=== PATIENT | female | born 1970 | race African-American/Black ===

== ENCOUNTER 2020-10-20 21:04 | Inpatient (IN) | payer OTHER ==
[~2020-10-20] VITALS: Ht 175.3 cm; Wt 95.3 kg
--- NOTE | 2020-10-20 21:30 | NUR ---
ED Nurse Note: pt has hx of fibroids, blood transfusions due to heavy menstrual, and back injury, back pain x3 days, radiating to lower stomach, pt is aox4, ambulatory, vitals stable
--- NOTE | 2020-10-20 21:40 | NUR ---
Patient arrived to ER via ambulatory c/o abdominal pain since 3 days ago , pte rates the pain 10/10. New orders received from EDP and carried out. All procedures were explain to the patient . Patient verbalized understanding. Safety and comfort measures taken: bed set in low position, frequent rounds, call light within reach. Will continue monitoring the patient during the sift.
[2020-10-20 21:57] VITALS: BP 120/69
[2020-10-20] MEDS ORDERED: Morphine Sulfate 10mg/ml Inj IVP ONE (22:15)
--- NOTE | 2020-10-20 22:18 | Emergency Room Report ---
History of Present Illness General Chief Complaint: Back Pain-No Injury Source: Patient Present Illness HPI This a 49-year-old female with a history of fibroids resulting dysfunctional uterine bleeding which required blood transfusion. Her last transfusion was in April 2020. She presents with chief complaint of back pain. Pain is to the upper lower lumbar area rating down her right leg. Pain is sharp in nature. She has history of stenosis and sees a pain specialist for this. Denies any fever chills but no nausea no vomiting. Not on any control. No incontinence of bowel or urine. Worse with movement. Better with rest. No trauma. Allergies: Coded Allergies: No Known Allergies (Unverified , 10/20/20) COVID-19 Screening Contact w/high risk pt: No Experienced COVID-19 symptoms?: No COVID-19 Testing performed MANAGER OF CORPORATE: No Patient History Past Medical History: see triage record, old chart reviewed Past Surgical History: other Pertinent Family History: none Social History: Denies: smoking Now: No Immunizations: other Reviewed Nursing Documentation: PMH: Agreed; PSxH: Agreed Review of Systems Eye: Denies: eye pain, blurred vision ENT: Denies: ear pain, nose congestion, throat swelling Respiratory: Denies: cough, shortness of breath Cardiovascular: Denies: chest pain, palpitations Gastrointestinal: Denies: abdominal pain, diarrhea, nausea, vomiting Musculoskeletal: Reports: back pain; Denies: joint pain Skin: Denies: rash Neurological: Denies: headache, numbness Endocrine: Denies: increased thirst, increased urine Hematologic/Lymphatic: Denies: easy bruising All Other Systems: negative except mentioned in HPI Physical Exam Vital Signs Date Time Temp Pulse Resp B/P (MAP) Pulse Ox O2 Delivery O2 Flow Rate FiO2 10/20/20 21:25 98.4 20 116/69 (85) 100 Room Air 10/20/20 21:57 87 Vitals normal Sp02 EP Interpretation: reviewed, normal General Appearance: well appearing, no apparent distress, alert Head: normocephalic, atraumatic Eyes: bilateral eye PERRL, bilateral eye EOMI ENT: hearing grossly normal, normal pharynx Neck: full range of motion, supple, no meningismus Respiratory: chest non-tender, lungs clear, normal breath sounds Cardiovascular #1: regular rate, rhythm, no murmur Gastrointestinal: normal bowel sounds, non tender, no mass, no organomegaly, no bruit, non-distended Musculoskeletal: back normal - Tenderness to mid and lower lumbar area on the right side., normal range of motion, gait/station normal Psychiatric: mood/affect normal Procedures Critical Care Time Critical Care Time Critical care is mandated in this patient who presented with requiring blood transfusion. Patient require my urgent intervention to attenuate the risks of metabolic collapse which may lead to cardiovascular collapse and . Critical care time is 35 minutes excluding any reportable procedure. Critical care time included evaluation, multiple reevaluation, looking at old charts, interpreting laboratory and diagnostic data, discussing case with patient and family and consultants, and charting. Medical Decision Making Diagnostic Impression: Primary Impression: Anemia Qualified Codes: D50.0 - Iron deficiency anemia secondary to blood loss (chronic) Additional Impressions: Dysfunctional uterine bleeding Leukocytosis Qualified Codes: D72.829 - Elevated white blood cell count, unspecified Back pain Qualified Codes: M54.41 - Lumbago with sciatica, right side Abdominal pain Qualified Codes: R10.84 - Generalized abdominal pain ER Course This patient presents with a couple of complaints. She initially complained of lower back pain. This is a chronic issue for her. No evidence of cauda equina syndrome, spinal epidural abscess or neoplastic process. She also has anemia secondary to chronic blood loss from dysfunctional uterine bleeding from fibroids. Hemoglobin is low here. She is otherwise medically stable. Blood transfusion ordered. I discussed the case with the [facility] doctor at [facility]. She approved admission for here. I ordered blood transfusion here. Patient received 1 unit of blood transfusion in the ER. Will admit for blood transfusion and repeat hemoglobin. She does have a leukocytosis but no evidence of an infection. There is no evidence of an acute abdomen. I contacted Dr. Belle for admission. CT/MRI/US Diagnostic Results CT/MRI/US Diagnostic Results : Imaging Test Ordered: CT abdomen and pelvis Impression Negative per radiologist Last Vital Signs Date Time Temp Pulse Resp B/P (MAP) Pulse Ox O2 Delivery O2 Flow Rate FiO2 10/20/20 21:57 97.4 87 17 120/69 100 Room Air Status: improved Disposition: ADMITTED INPATIENT Condition: Serious Santosh White MD Oct 20, 2020 22:18
[2020-10-20 22:50] LABS: HEMATOCRIT 25.1 % (37.0-47.0); MEAN CORPUSCULAR VOLUME 58 FL (80-99); PLATELET COUNT 251 K/UL (150-450); RED CELL DISTRIBUTION WIDTH 16.2 % (11.6-14.8); WHITE BLOOD COUNT 19.5 K/UL (4.8-10.8)
[2020-10-20 22:51] LABS: APPEARANCE,URINE CLEAR; BILIRUBIN, URINE NEGATIVE (NEGATIVE); COLOR,URINE PALE YELLOW; GLUCOSE, URINE (UA) NEGATIVE (NEGATIVE); KETONES,URINE NEGATIVE (NEGATIVE); LEUKOCYTE ESTERASE ,URINE 1+ (NEGATIVE); NITRITE,URINE NEGATIVE (NEGATIVE); PH,URINE 6 (4.5-8.0); PROTEIN,URINE NEGATIVE (NEGATIVE); UROBILINOGEN,URINE NORMAL MG/DL (0.0-1.0)
[2020-10-20 22:55] LABS: HEMOGLOBIN 6.4 G/DL (12.0-16.0)
--- NOTE | 2020-10-20 23:00 | NUR ---
Patient in bed in comfortable position and stable condition. All vitals signs were taken within normal range. Urine and blood were collected and sent them to the lab. All medications were administered without adverse reaction. Patient continuous attached to the monitor
[2020-10-20 23:28] LABS: ANION GAP 11 mmol/L (5-15); BLOOD UREA NITROGEN 10 mg/dL (7-18); CALCIUM 9.1 MG/DL (8.5-10.1); CARBON DIOXIDE 26 MMOL/L (21-32); CHLORIDE 101 MMOL/L (98-107); CREATININE 0.8 MG/DL (0.55-1.30); POTASSIUM 3.5 MMOL/L (3.5-5.1); SODIUM 138 MMOL/L (136-145)
[2020-10-20 23:33] LABS: ALANINE AMINOTRANSFERASE 20 U/L (12-78); ALBUMIN 3.8 G/DL (3.4-5.0); ALBUMIN/GLOBULIN RATIO 0.9 (1.0-2.7); ALKALINE PHOSPHATASE 78 U/L (46-116); ASPARTATE AMINO TRANSFERASE 17 U/L (15-37); BILIRUBIN,TOTAL 0.5 MG/DL (0.2-1.0)
[2020-10-21] VITALS (7 sets, daily range): BP systolic 102–126; BP diastolic 45–72
--- NOTE | 2020-10-21 00:07 | NUR ---
Sharri from [facility] updated on pt Hgb level and pending COVID test.
--- NOTE | 2020-10-21 00:53 | Diagnostic Imaging Report ---
EXAM: CT Abdomen and Pelvis Without Intravenous Contrast CLINICAL HISTORY: ABD PAIN TECHNIQUE: Axial computed tomography images of the abdomen and pelvis without intravenous contrast. CTDI is 14.5 mGy and DLP is 824 mGy-cm. One or more of the following dose reduction techniques were used: automated exposure control, adjustment of the mA and/or kV according to patient size, use of iterative reconstruction technique. COMPARISON: No relevant prior studies available. FINDINGS: Lung bases: Unremarkable. No mass. No consolidation. ABDOMEN: Liver: Unremarkable. Gallbladder and bile ducts: Unremarkable. No calcified stones. No ductal dilation. Pancreas: Unremarkable. No ductal dilation. Spleen: Unremarkable. No splenomegaly. Adrenals: Unremarkable. No mass. Kidneys and ureters: Unremarkable. No obstructing stones. No hydronephrosis. Stomach and bowel: Unremarkable. No obstruction. No mucosal thickening. PELVIS: Appendix: No findings to suggest acute appendicitis. Bladder: Unremarkable. No stones. Reproductive: Unremarkable as visualized. ABDOMEN and PELVIS: Intraperitoneal space: Unremarkable. No free air. No significant fluid collection. Bones/joints: No acute fracture. No dislocation. Soft tissues: Unremarkable. Vasculature: Unremarkable. No abdominal aortic aneurysm. Lymph nodes: Unremarkable. No enlarged lymph nodes. IMPRESSION: Normal abdomen and pelvis CT.
[2020-10-21] MEDS ORDERED: Morphine Sulfate 4mg/ml Inj IVP PRN (01:00)
--- NOTE | 2020-10-21 01:00 | NUR ---
Blood transfusions started and vital signs within normal limits, blood transfusion running well. Patient does not have any complain at this time, IV site patent. Will continue to monitoring the pte.
--- NOTE | 2020-10-21 01:15 | NUR ---
Patient continues in stable condition, no reaction noted at this time. Blood transfusion running properly, IV site patent. Will continue to monitor
--- NOTE | 2020-10-21 01:50 | NUR ---
NURSE NOTES: Received pt from ER via nevae[facility]. A/A/Ox4 Respiration even and unlabored. VSS. Afebrile. In no apparent distress. First unit PRBC in progress. Bed in locked in lowest position. Call light within reach. Bed alarm engaged.
--- NOTE | 2020-10-21 01:56 | NUR ---
Pte was admitted to the floor report given to the nurse Michael room number 219. All belongs were packaged and sent them with the pte. Pacient left ER in stable condition accompained of prashanth WAGNER .
--- NOTE | 2020-10-21 03:00 | NUR ---
NURSE NOTES: First unit PRBC completed without any reaction. VSS. Afebrile. No distress noted.
--- NOTE | 2020-10-21 07:26 | NUR ---
NURSE NOTES: received patient report from whitney smalls rn. patient is on bed awake. not in acute distress. Currently on blood transfusion, 2nd bag. no acute reactions so far. skin is intact. ao X4, afebrile. will follow plan of care.
--- NOTE | 2020-10-21 07:49 | NUR ---
Software Development Leader: left a message to dr morris regarding admission orders as well as dvt prophylaxis for this patient. awaiting callback and new orders.
[2020-10-21] MEDS ORDERED: Acetaminophen 500mg (ES) tab ORAL PRN (08:15)
--- NOTE | 2020-10-21 08:28 | NUR ---
NURSE NOTES: I received report from KRISTY Boyle; patient alert x4; on room air, no sign of distress and shortness of breath; no sign of chest pain; currently patient is getting the second bag of blood, no reaction for the transfusion; side rails up x2, breaks engaged, bed at lowest position; call light within reach; will keep monitoring.
--- NOTE | 2020-10-21 09:34 | NUR ---
NURSE NOTES: Second blood transfusion done; Vitals within the rang; no adverse reaction noted; patient stable;
--- NOTE | 2020-10-21 09:37 | NUR ---
NURSE NOTES: I received order from MING Luis; Morphine Sulfate 4mg IVP Q6H for Sever pain; order carried out as order given;
[2020-10-21] MEDS: Morphine Sulfate 2mg/ml Inj IVP PRN ×2 (09:40→19:00)
--- NOTE | 2020-10-21 14:14 | Consultation ---
DATE OF CONSULTATION: 10/21/2020 INFECTIOUS DISEASES CONSULTATION CONSULTING PHYSICIAN: Kalin Peña MD. REFERRING PHYSICIAN: Cabrera Belle MD. REASON FOR CONSULTATION: Leukocytosis. HISTORY OF PRESENT ILLNESS: This is a 49-year-old female admitted today from home originally because of low back pain in the lumbar area radiating to leg. The patient had these symptoms for a while. It was discovered the patient had severe anemia with the hemoglobin of 6.4, also had leukocytosis of 19.5. PAST MEDICAL HISTORY: Uterine fibroid with heavy menstrual bleeding. The patient had history of blood transfusion in the past. Has history of lumbar spine degenerative disk disease. ALLERGIES: No known drug allergies. MEDICATIONS: Morphine, Tylenol, received blood transfusion. SOCIAL HISTORY: Single. No history of alcohol, drug abuse, or smoking. REVIEW OF SYSTEMS: No fever. No chills. No coughing. No shortness of breath. No nausea. No vomiting. No dysuria. Has back pain. PHYSICAL EXAMINATION: VITAL SIGNS: Temperature 97.2, pulse 67, blood pressure 102/55. GENERAL APPEARANCE: Seems overweight, well developed. HEAD AND NECK: Moist mucous membranes. HEART: Normal rate. LUNGS: Clear. ABDOMEN: Soft, nontender. EXTREMITIES: No edema. NEUROLOGIC: Awake, alert, oriented. LABORATORY AND DIAGNOSTIC DATA: WBC 19.5, hemoglobin 6.4, hematocrit 25.1, platelets 251. Sodium 138, potassium 3.5, chloride 101, bicarb 26, BUN 10, creatinine 0.8, glucose 121. UA was negative. The patient had a CT scan of the abdomen and pelvis that was normal. COVID test was negative. IMPRESSION: Leukocytosis likely secondary to bleeding, has uterine fibroid and dysfunctional uterine bleeding, iron-deficiency anemia, and lumbar spine disk disease. RECOMMENDATION: Observe off antibiotics. Followup CBC. At the end of my exam, I thank Dr. Belle, for involving me in the care of this patient. Kalin Peña M.D. DR: Ivelisse JOB#: [id number] CC: RICKY
--- NOTE | 2020-10-21 18:35 | Consultation ---
History of Present Illness General Date patient seen: Oct 21, 2020 Present Illness Allergies: Coded Allergies: No Known Allergies (Unverified , 10/20/20) Patient History Healthcare decision maker Resuscitation status Advanced Directive on File Physical Exam Last 24 Hour Vital Signs Date Time Temp Pulse Resp B/P (MAP) Pulse Ox O2 Delivery O2 Flow Rate FiO2 10/21/20 16:00 97.6 83 20 105/61 (76) 98 10/21/20 12:00 97.2 67 20 102/55 (71) 99 10/21/20 10:10 97.0 10/21/20 09:00 97.0 76 21 103/45 (64) 97 10/21/20 09:00 Room Air 10/21/20 08:00 97.3 67 21 108/57 (74) 99 10/21/20 03:40 97.9 71 20 104/56 (72) 97 10/21/20 02:40 Room Air 10/21/20 01:54 98.2 87 18 130/89 98 Room Air 10/20/20 21:57 97.4 87 17 120/69 100 Room Air 10/20/20 21:25 98.4 20 116/69 (85) 100 Room Air Intake and Output 10/20/20 10/21/20 19:00 07:00 Intake Total 370 ml Balance 370 ml Intake Oral 120 ml Blood Product 250 ml Laboratory Tests Test 10/20/20 22:36 White Blood Count 19.5 K/UL (4.8-10.8) H Red Blood Count 4.30 M/UL (4.20-5.40) Hemoglobin 6.4 G/DL (12.0-16.0) *L Hematocrit 25.1 % (37.0-47.0) L Mean Corpuscular Volume 58 FL (80-99) L Mean Corpuscular Hemoglobin 14.8 PG (27.0-31.0) L Mean Corpuscular Hemoglobin Concent 25.4 G/DL (32.0-36.0) L Red Cell Distribution Width 16.2 % (11.6-14.8) H Platelet Count 251 K/UL (150-450) Mean Platelet Volume 11.5 FL (6.5-10.1) H Neutrophils (%) (Auto) % (45.0-75.0) Lymphocytes (%) (Auto) % (20.0-45.0) Monocytes (%) (Auto) % (1.0-10.0) Eosinophils (%) (Auto) % (0.0-3.0) Basophils (%) (Auto) % (0.0-2.0) Differential Total Cells Counted 100 Neutrophils % (Manual) 66 % (45-75) Lymphocytes % (Manual) 20 % (20-45) Monocytes % (Manual) 7 % (1-10) Eosinophils % (Manual) 3 % (0-3) Basophils % (Manual) 0 % (0-2) Band Neutrophils 4 % (0-8) Platelet Estimate Adequate Platelet Morphology Normal Urine Color Pale yellow Urine Appearance Clear Urine pH 6 (4.5-8.0) Urine Specific [place] 1.015 (1.005-1.035) Urine Protein Negative (NEGATIVE) Urine Glucose (UA) Negative (NEGATIVE) Urine Ketones Negative (NEGATIVE) Urine Blood Negative (NEGATIVE) Urine Nitrite Negative (NEGATIVE) Urine Bilirubin Negative (NEGATIVE) Urine Urobilinogen Normal MG/DL (0.0-1.0) Urine Leukocyte Esterase 1+ (NEGATIVE) H Urine RBC 0-2 /HPF (0 - 2) Urine WBC 0-2 /HPF (0 - 2) Urine Squamous Epithelial Cells Few /LPF (NONE/OCC) Urine Bacteria None /HPF (NONE) Sodium Level 138 MMOL/L (136-145) Potassium Level 3.5 MMOL/L (3.5-5.1) Chloride Level 101 MMOL/L (98-107) Carbon Dioxide Level 26 MMOL/L (21-32) Anion Gap 11 mmol/L (5-15) Blood Urea Nitrogen 10 mg/dL (7-18) Creatinine 0.8 MG/DL (0.55-1.30) Estimat Glomerular Filtration Rate > 60 mL/min (>60) Glucose Level 121 MG/DL (74-106) H Calcium Level 9.1 MG/DL (8.5-10.1) Total Bilirubin 0.5 MG/DL (0.2-1.0) Aspartate Amino Transf (AST/SGOT) 17 U/L (15-37) Alanine Aminotransferase (ALT/SGPT) 20 U/L (12-78) Alkaline Phosphatase 78 U/L (46-116) Total Protein 8.2 G/DL (6.4-8.2) Albumin 3.8 G/DL (3.4-5.0) Globulin 4.4 g/dL Albumin/Globulin Ratio 0.9 (1.0-2.7) L Microbiology Date/Time Source Procedure Growth Status 10/21/20 00:13 Nasopharynx SARS-CoV-2 Antigen (Rapid)(SUZANNE) - Final Complete Height (Feet): 5 Height (Inches): 9.00 Weight (Pounds): 210 Medications Current Medications Medications (Trade) Dose Ordered Sig/Ernesto Route PRN Reason Start Time Stop Time Status Last Admin Dose Admin Acetaminophen (Tylenol) 500 mg Q4H PRN ORAL Mild Pain (Pain Scale 1-3) 10/21/20 08:15 11/20/20 08:14 Morphine Sulfate (Morphine Sulfate) 4 mg Q6H PRN IVP Severe Pain (Pain Scale 7-10) 10/21/20 09:45 10/28/20 09:44 10/21/20 09:40 Assessment/Plan Assessment/Plan: (1) Lumbar DDD (2) Lumbar Spondylosis (3) Lumbar Radiculopathy seen dictated Tomy Luis Oct 21, 2020 18:35
--- NOTE | 2020-10-21 19:44 | NUR ---
NURSE HAND-OFF: Important Events on Shift:Two units of blood transfusion done; pain management Patient Status: Diet: Pending Orders: Pending Results/Labs: Pending MD notification: Latest Vital Signs: Temperature 97.6 , Pulse 83 , B/P 105 /61 , Respiratory Rate 20 , O2 SAT 98 , Room Air, O2 Flow Rate . Vital Sign Comment: Latest Magallon Fall Score: 20 Fall Risk: Low Risk Safety Measures: Call light , Bed Alarm , Side Rails Side Rails x2, Bed position Low and Locked. Fall Precautions: Patient Fall Education Report given to .
--- NOTE | 2020-10-21 19:49 | NUR ---
NURSE NOTES: Patient awake in bed, alert and oriented x4, on room air, no SOB noted. With IV access on the right AC g.20 saline lock. Instructed to use call light for assistance. Call light and needs in reach. Bed in lowest and locked. Will continue to monitor.
--- NOTE | 2020-10-22 03:29 | History and Physical Report ---
DATE OF ADMISSION: 10/21/2020 HISTORY OF PRESENT ILLNESS: The patient is here for anemia, to get blood transfusion. The patient has history of heavy menstrual/uterine bleeding. The patient also has leukocytosis. The patient has history of alcohol abuse and history of marijuana use. The patient has also chronic back pain that radiates to the right lower extremity. The patient is on multiple narcotics for her chronic pain syndrome. The patient has fibroids and is admitted for transfusions. PAST MEDICAL HISTORY: Significant for history of dysfunctional uterine bleeding, chronic pain syndrome, radiculopathy, history of fibroids, low back pain, anemia. PAST SURGICAL HISTORY: . FAMILY HISTORY: Noncontributory. REVIEW OF SYSTEMS: HEENT: Denies headaches. RESPIRATORY: Denies shortness of breath. Denies cough. CARDIOVASCULAR: Denies chest pain. GASTROINTESTINAL: Denies nausea, vomiting, or diarrhea. EXTREMITIES: Does have back pain and radiates to the right lower extremity. PELVIC: The patient has menstrual cramps. CENTRAL NERVOUS SYSTEM: Denies change in speech pattern. Feels weak. PHYSICAL EXAMINATION: VITAL SIGNS: Temperature 97.2, pulse 78, blood pressure 130/70. HEENT: PERRLA. NECK: Supple. CHEST: Clear to auscultation CARDIOVASCULAR: Regular rate and rhythm. No murmurs or extra sounds. GASTROINTESTINAL: Soft, nontender, nondistended. No organomegaly. EXTREMITIES: No edema. Moves all four extremities. NEUROLOGIC: Sensory intact to light touch. Reflexes on both sides. Moves all four extremities. LABORATORY DATA: WBC of 19.5, hemoglobin 6.4, platelets of 251. Sodium 138, potassium 3.5, BUN of 10, creatinine 0.8, glucose of 121. ASSESSMENT AND PLAN: Uterine bleeding, dysfunctional due to fibroids; anemia, requiring transfusion; leukocytosis of unknown origin. I have consulted Dr. Darby, Dr. Kalin Peña, Dr. Adryan Monsivais, Dr. Noble for pain management, back pain as well as for the management of the anemia as well as for management of the uterine bleeding and to rule out any infectious etiology since the patient has leukocytosis. . Ali Hadadz, M.D. DR: Reji JOB#: [id number] CC:
[2020-10-22 04:00] VITALS: BP 111/53
[2020-10-22 07:07] LABS: % IRON SATURATION 4 % (15-50); IRON 19 ug/dL (50-175); TOTAL IRON BINDING CAPACITY 514 ug/dL (250-450)
--- NOTE | 2020-10-22 07:08 | NUR ---
NURSE HAND-OFF: Report given to KRISTY Denson.
[2020-10-22 07:19] LABS: FERRITIN 6 NG/ML (8-388)
[2020-10-22 08:00] VITALS: BP 133/80
--- NOTE | 2020-10-22 08:00 | NUR ---
NURSE NOTES: Patient awake and alert and oriented,respirations unlabored,.Saline lock in place .Patient ate breakfast.No complaints at this time.Call light within reach.
--- NOTE | 2020-10-22 08:20 | General Progress Note ---
Subjective Date patient seen: Oct 22, 2020 Time patient seen: 07:15 - am Allergies: Coded Allergies: No Known Allergies (Unverified , 10/20/20) Subjective HPI: This is a 49 y/o female who is being seen on the tele floor of [facility] [place] [place]. Patient reports pain has been tolerated on the morphine. Having no new complaints at this time. REVIEW OF SYSTEMS: Denies rash, fever, chills, sweating, dizziness, drowsiness, or change in weight. No shortness of breath or chest pain. No nausea, vomiting, or blood in the stool or urine. Physical Exam: GENERAL: Alert, awake, and oriented x3. LUNGS: Decreased BS B/L. HEART: S1 S2 Regular. ABDOMEN: Benign. EXTREMITIES: No CCE. NEURO: No changes. Objective Last 24 Hour Vital Signs Date Time Temp Pulse Resp B/P (MAP) Pulse Ox O2 Delivery O2 Flow Rate FiO2 10/22/20 04:00 98.4 80 18 111/53 (72) 99 10/21/20 23:47 97.9 89 18 108/60 (76) 97 10/21/20 20:53 Room Air 10/21/20 20:00 98.3 87 18 126/72 (90) 97 10/21/20 19:30 97.6 10/21/20 16:00 97.6 83 20 105/61 (76) 98 10/21/20 12:00 97.2 67 20 102/55 (71) 99 10/21/20 10:10 97.0 10/21/20 09:00 97.0 76 21 103/45 (64) 97 10/21/20 09:00 Room Air Intake and Output 10/21/20 10/22/20 19:00 07:00 Intake Total 500 ml 360 ml Balance 500 ml 360 ml Intake Oral 500 ml 360 ml # Voids 4 6 Laboratory Tests 10/22/20 06:33: Reticulocyte Count 1.0, Iron Level 19L, Total Iron Binding Capacity 514H, Perce nt Iron Saturation 4L, Unsaturated Iron Binding 495H, Ferritin 6L Height (Feet): 5 Height (Inches): 9.00 Weight (Pounds): 210 Assessment/Plan Assessment/Plan: (1) Lumbar DDD (2) Lumbar Spondylosis (3) Lumbar Radiculopathy Patient to be continued on Morphine D/w Dr. Noble and he concurred. Tomy Luis Oct 22, 2020 08:20
[2020-10-22] MEDS ORDERED: Morphine Sulfate 10mg/ml Inj IVP PRN (09:00)
--- NOTE | 2020-10-22 11:06 | NUR ---
INSURANCE CLINICALS FAXED TO [facility]# [phone] fax # [phone]
[2020-10-22 12:00] VITALS: BP 121/72
--- NOTE | 2020-10-22 12:06 | Infectious Diseases Prog Note ---
Assessment/Plan Assessment/Plan IMPRESSION: Leukocytosis Uterine fibroid & dysfunctional uterine bleeding, Iron-deficiency anemia, Lumbar spine disk disease. RECOMMENDATION: Observe off antibiotics. Followup CBC. Subjective ROS Limited/Unobtainable: No Constitutional: Reports: no symptoms Respiratory: Reports: no symptoms Gastrointestinal/Abdominal: Reports: no symptoms Genitourinary: Denies: vaginal bleed/discharge Musculoskeletal: Reports: pain, other - back pain Allergies: Coded Allergies: No Known Allergies (Unverified , 10/20/20) Objective Last 24 Hour Vital Signs Date Time Temp Pulse Resp B/P (MAP) Pulse Ox O2 Delivery O2 Flow Rate FiO2 10/22/20 10:32 Room Air 10/22/20 08:00 97.2 82 18 133/80 (97) 99 10/22/20 04:00 98.4 80 18 111/53 (72) 99 10/21/20 23:47 97.9 89 18 108/60 (76) 97 10/21/20 20:53 Room Air 10/21/20 20:00 98.3 87 18 126/72 (90) 97 10/21/20 19:30 97.6 10/21/20 16:00 97.6 83 20 105/61 (76) 98 Height (Feet): 5 Height (Inches): 9.00 Weight (Pounds): 210 General Appearance: no acute distress HEENT: mucous membranes moist Respiratory/Chest: lungs clear Cardiovascular: normal rate Abdomen: soft, non tender Extremities: no edema Neurologic/Psychiatric: alert, oriented x 3, responsive Microbiology Date/Time Source Procedure Growth Status 10/21/20 00:13 Nasopharynx SARS-CoV-2 Antigen (Rapid)(SUZANNE) - Final Complete Laboratory Tests Test 10/22/20 06:33 Reticulocyte Count 1.0 % (0.5-2.0) Iron Level 19 ug/dL (50-175) L Total Iron Binding Capacity 514 ug/dL (250-450) H Percent Iron Saturation 4 % (15-50) L Unsaturated Iron Binding 495 ug/dL (112-346) H Ferritin 6 NG/ML (8-388) L Current Medications Medications (Trade) Dose Ordered Sig/Ernesto Route PRN Reason Start Time Stop Time Status Last Admin Dose Admin Acetaminophen (Tylenol) 500 mg Q4H PRN ORAL Mild Pain (Pain Scale 1-3) 10/21/20 08:15 4/22/21 08:14 Morphine Sulfate (Morphine Sulfate) 4 mg Q6H PRN IVP Severe Pain (Pain Scale 7-10) 10/22/20 09:00 10/29/20 08:59 10/22/20 09:07 Kalin Peña MD Oct 22, 2020 12:06
--- NOTE | 2020-10-22 13:14 | Consultation ---
History of Present Illness General Chief Complaint: Back Pain-No Injury Present Illness Allergies: Coded Allergies: No Known Allergies (Unverified , 10/20/20) Patient History Healthcare decision maker Resuscitation status Advanced Directive on File Physical Exam Last 24 Hour Vital Signs Date Time Temp Pulse Resp B/P (MAP) Pulse Ox O2 Delivery O2 Flow Rate FiO2 10/22/20 12:00 97.5 90 18 121/72 (88) 98 10/22/20 10:32 Room Air 10/22/20 08:00 97.2 82 18 133/80 (97) 99 10/22/20 04:00 98.4 80 18 111/53 (72) 99 10/21/20 23:47 97.9 89 18 108/60 (76) 97 10/21/20 20:53 Room Air 10/21/20 20:00 98.3 87 18 126/72 (90) 97 10/21/20 19:30 97.6 10/21/20 16:00 97.6 83 20 105/61 (76) 98 Intake and Output 10/21/20 10/22/20 19:00 07:00 Intake Total 500 ml 360 ml Balance 500 ml 360 ml Intake Oral 500 ml 360 ml # Voids 4 6 Laboratory Tests Test 10/22/20 06:33 Reticulocyte Count 1.0 % (0.5-2.0) Iron Level 19 ug/dL (50-175) L Total Iron Binding Capacity 514 ug/dL (250-450) H Percent Iron Saturation 4 % (15-50) L Unsaturated Iron Binding 495 ug/dL (112-346) H Ferritin 6 NG/ML (8-388) L Height (Feet): 5 Height (Inches): 9.00 Weight (Pounds): 210 Medications Current Medications Medications (Trade) Dose Ordered Sig/Ernesto Route PRN Reason Start Time Stop Time Status Last Admin Dose Admin Acetaminophen (Tylenol) 500 mg Q4H PRN ORAL Mild Pain (Pain Scale 1-3) 10/21/20 08:15 11/20/20 08:14 Morphine Sulfate (Morphine Sulfate) 4 mg Q6H PRN IVP Severe Pain (Pain Scale 7-10) 10/22/20 09:00 10/29/20 08:59 10/22/20 09:07 Assessment/Plan Assessment/Plan: Hematology Consultation REQ : Cabrera Weiss RFC: Anemia, ongoing, fibroid uterus DOS: 10/22/2020 ID This a 49-year-old female with a history of fibroids resulting dysfunctional uterine bleeding which required blood transfusion. Her last transfusion was in April 2020. She presents with chief complaint of back pain. Pain is to the upper lower lumbar area rating down her right leg. Pain is sharp in nature. She has history of stenosis and sees a pain specialist for this. Denies any fever chills but no nausea no vomiting. Not on any control. No incontinence of bowel or urine. Worse with movement. Better with rest. No trauma. to see home advisor here Dr. Short and have started her on venofer today. Coded Allergies: No Known Allergies (Unverified , 10/20/20) COVID-19 Screening Contact w/high risk pt: No Experienced COVID-19 symptoms?: No COVID-19 Testing performed BUSINESS OBJECTS DEVELOPER: No Patient History Past Medical History: see triage record, old chart reviewed Past Surgical History: other Pertinent Family History: none Social History: Denies: smoking Now: No Immunizations: other Reviewed Nursing Documentation: PMH: Agreed; PSxH: Agreed Review of Systems Eye: Denies: eye pain, blurred vision ENT: Denies: ear pain, nose congestion, throat swelling Respiratory: Denies: cough, shortness of breath Cardiovascular: Denies: chest pain, palpitations Gastrointestinal: Denies: abdominal pain, diarrhea, nausea, vomiting Musculoskeletal: Reports: back pain; Denies: joint pain Skin: Denies: rash Neurological: Denies: headache, numbness Endocrine: Denies: increased thirst, increased urine Hematologic/Lymphatic: Denies: easy bruising All Other Systems: negative except mentioned in HPI PE Sp02 EP Interpretation: reviewed, normal General Appearance: well appearing, no apparent distress, alert Head: normocephalic, atraumatic Eyes: bilateral eye PERRL, bilateral eye EOMI ENT: hearing grossly normal, normal pharynx Neck: full range of motion, supple, no meningismus Respiratory: chest non-tender, lungs clear, normal breath sounds Cardiovascular #1: regular rate, rhythm, no murmur Gastrointestinal: normal bowel sounds, non tender, no mass, no organomegaly, no bruit, non-distended Musculoskeletal: back normal - Tenderness to mid and lower lumbar area on the right side., normal range of motion, gait/station normal Psychiatric: mood/affect normal Labs: reviewed Imaging: noted Assessment and Recs # Anemia due to iron defiiciency -- currently is on venofer at this time, daily dosing --> on iv iron, venofer x 5 days total --> have dw home advisor, likely to need w/u outpatient --> with fibroid uterus, will need provera in the outpatient setting --> home advisor eval prn # Dysfunctional uterine bleeding --> due to fibroid uterus # Leukocytosis --> reactive process, wbc 19.5 --> abx as per id # Back pain --> ongoing issue # Abdominal pain # Dvt ppx scds Time of note does not necessarily correspond to the time the patient was seen. Appreciate consultation greatly. Adryan Monsivais MD Oct 22, 2020 13:14
--- NOTE | 2020-10-22 13:30 | NUR ---
NURSE NOTES: SHANELLE Luis notified per patient state pain medication Morphine 4mg iv ,pain relief last ayad for 2hours.patient state she takes MS contin at home and oxycodone for pain.Order receive to discontinue the Morphine and give Dilaudid 1mg iv Q4hr prn pain.
--- NOTE | 2020-10-22 14:05 | NUR ---
NURSE NOTES: Education was given regarding pain medication Dilaudid.patient state if she can not get the pain medication that she takes at home why is she here.Education given regarding DR are monitoring labs. DR Jean notified regarding no CBC was ordered for today,and patient wants to be discharge.
[2020-10-22 15:30] LABS: BASOPHILS % (AUTO) 0.9 % (0.0-2.0); EOSINOPHILS % (AUTO) 2.5 % (0.0-3.0); HEMATOCRIT 29.4 % (37.0-47.0); HEMOGLOBIN 8.4 G/DL (12.0-16.0); LYMPHOCYTES % (AUTO) 19.2 % (20.0-45.0); MEAN CORPUSCULAR VOLUME 63 FL (80-99); MONOCYTES % (AUTO) 5.8 % (1.0-10.0); NEUTROPHILS % (AUTO) 71.5 % (45.0-75.0); PLATELET COUNT 225 K/UL (150-450); RED BLOOD COUNT 4.64 M/UL (4.20-5.40); WHITE BLOOD COUNT 15.2 K/UL (4.8-10.8)
--- NOTE | 2020-10-22 15:50 | NUR ---
NURSE NOTES: DR Jean aware of patient CBC result.
[2020-10-22 16:00] VITALS: BP 120/75
--- NOTE | 2020-10-22 17:03 | NUR ---
NURSE NOTES: Patient discharge per DR Belle orders.DR Belle aware of patient lab results.IV removed and ID hospital band removed .Patient has her personal belongings. DR Castillo aware of patient discharge.Patient accompany to private vehicle,patient family member will take patient home.
[2020-10-22] MEDS ORDERED: Iron Sucrose 100 MG in NS 55 ML IVPB SCH (21:00)
--- NOTE | 2020-10-24 10:44 | Consultation ---
DATE OF CONSULTATION: 10/21/2020 PAIN MANAGEMENT CONSULTATION CONSULTING PHYSICIAN: Homar Noble MD REFERRING PHYSICIAN: Cabrera Belle MD PHYSICIAN GROC[employer] STORE MANAGER: SHANELLE Rebollar CHIEF COMPLAINT: Back pain. HISTORY OF PRESENT ILLNESS: This is a 49-year-old female who is being been seen on the telemetry floor of [facility] for comprehensive pain management consultation. The patient is a known patient from previous hospital admissions, now admitted under the care of Dr. Belle, due to anemia, getting blood transfusion, caused by fibroid uterus. The patient states she has been having back pain for many years lower extremities since she was 11 years old. Had seen DrBertram as an outpatient, receiving Morphine extended release 30 mg, oxycodone 30 mg as needed, 4 mg IV pain with adequate relief . morphine and oxycodone. REVIEW OF SYSTEMS: Denies rash, fever, chills, sweating, dizziness, drowsiness, sore throat, or change in weight. No nausea, vomiting, diarrhea, or blood in the stool. No dysuria. PHYSICAL EXAMINATION: GENERAL: Alert, awake, and oriented. VITAL SIGNS: Blood pressure 102/55, heart rate 67, oxygen saturation 98%, respirations 20, temperature 97 degrees Fahrenheit. HEENT: PERRLA. NECK: Range of motion is full in all directions. No tenderness to paracervical muscles. No adenopathy. LUNGS: Decreased breath sounds bilaterally. HEART: S1 and S2 regular. ABDOMEN: Soft and nontender. BACK: Range of motion is decreased in flexion and extension. EXTREMITIES: No cyanosis, no clubbing, no edema. ASSESSMENT AND PLAN: This is a 49-year-old female with lumbar degenerative disk disease, . The patient was discussed with Dr. Noble and Dr. Noble concurred. We will follow up with the patient. Thank you very much for the courtesy of this consultation. Homar Noble M.D. SHANELLE Rebollar DR: KAUR JOB#: [id number] CC:
--- NOTE | 2020-10-24 10:46 | Discharge Summary ---
Discharge Summary Discharge Summary _ Date of admission: 10/21/2020 Date of discharge: 10/22/[address] Belle History of Present Illness and Brief Hospital Course Ms. Mckeon is a 49-year-old female with past medical history of uterine fibroids who presented to ED for evaluation of chronic back pain. Patient stated that pr eviously her uterine fibroid resulted in dysfunctional uterine bleeding which required blood transfusion in April 2020. Patient's hemoglobin level was at 6.5 and required transfusion. Laboratory studies did show leukocytosis but there was no evidence of an infection. Abdomen/pelvis CT was largely unremarkable. Patient was admitted to the hospital after transfusion for obser vation. Given the underlying history of disc degenerative disease, spondylosis, and radiculopathy, patient was continued on morphine for pain management. Patient was started on IV iron for iron deficiency anemia. Patient likely needs further work-up as an outpatient. Patient also would need Provera in the outpatient setting. Her leukocytosis was likely an reactive process. She was observed off antibiotics. Her white blood cell count improved by the time of discharge. Patient's H&H improved after transfusion and was medically stable for discharge. Patient was discharged home on 10/22/2020. She was instructed to follow-up with her PCP and blacktop spreader upon discharge. Consultants: Hematology oncology Dr. Monisvais Pain management SHANELLE Wilkinson Infectious disease Dr. Peña Discharge Condition Stable Discharge Activity As tolerated Discharge Diet Regular Final diagnoses Anemia due to iron deficiency Dysfunctional uterine bleeding Leukocytosis Lumbar disc degenerative disease Lumbar spondylosis Lumbar radiculopathy Uterine fibroid I have been assigned to dictate discharge summary for this account. I was not involved in the patient's management Gurpreet Cortes Oct 24, 2020 10:46
== END 2020-10-22 17:24 | disposition home or self-care (01) | DRG 532 ==
LOC: EMR 22:10 → 2E 10-21 00:27 → EDBEDREQ 10-21 00:38
PROC: 30233N1 Transfusion of Nonautologous Red Blood Cells into Peripheral Vein, Percutaneous Approach (ICD-10-PCS; principal; 2020-10-21)
DX: N93.8 Other specified abnormal uterine and vaginal bleeding (principal); D25.9 Leiomyoma of uterus, unspecified; D50.0 Iron deficiency anemia secondary to blood loss (chronic); M51.16 Intervertebral disc disorders with radiculopathy, lumbar region; M47.896 Other spondylosis, lumbar region; G89.4 Chronic pain syndrome
CPT/HCPCS: 36415; 74176; 80053; 81003; 82728; 83540; 83550; 85007; 85025; 85044; 86850; 86900; 86901; 86920; 96374; 96375; 99291; J2405